=== PATIENT | male | born 1945 | race Caucasian/White ===

== ENCOUNTER 2019-02-22 10:17 | Day surgery (SDC) | payer MEDICARE, BC ==
[~2019-02-22 10:17] MED LIST: Lactated Ringers 1,000 ML IV SCH
--- NOTE | 2019-02-22 11:59 | PCM.PREANE ---
Preanesthetic Assessment - Anesthesia/Transfusion/Family Hx Anesthesia History: Prior Anesthesia Without Reaction Family History of Anesthesia Reaction: No Transfusion History: No Prior Transfusion(s) Type of Transfusion Reactions: Reports: Unknown - Review of Systems General: No Symptoms Pulmonary: No Symptoms Cardiovascular: No Symptoms Gastrointestinal: No Symptoms Neurological: No Symptoms Other: Reports: None - Physical Assessment NPO Status Date: 02/21/19 O2 Sat by Pulse Oximetry: 94 Respiratory Rate: 16 Vital Signs: Last Vital Signs Temp 98.1 F 02/22/19 11:00 Pulse 61 02/22/19 11:00 Resp 16 02/22/19 11:00 BP 127/78 02/22/19 11:00 Pulse Ox 94 L 02/22/19 11:00 Height: 5 ft 10 in Weight: 89.811 kg ASA Class: 3 Mental Status: Alert & Oriented x3 Airway Class: Mallampati = 2 Dentition: Reports: Normal Dentition ROM/Head Extension: Full Lungs: Clear to Auscultation, Normal Respiratory Effort Cardiovascular: Regular Rate, Regular Rhythm - Allergies Allergies/Adverse Reactions: Allergies Allergy/AdvReac Type Severity Reaction Status Date / Time No Known Allergies Allergy Verified 02/18/19 07:37 - Blood Blood Available: No - Anesthesia Plan Pre-Op Medication Ordered: None - Acknowledgements Anesthesia Type Planned: General Anesthesia, MAC Pt an Appropriate Candidate for the Planned Anesthesia: Yes Alternatives and Risks of Anesthesia Discussed w Pt/Guardian: Yes Pt/Guardian Understands and Agrees with Anesthesia Plan: Yes Additional Comments: PMH: cad with stent, 2009, htn, hld, gerd/esphagitis, melanie- on cpap, on tapazole for hyperthyroidism, PLN mac/tiva PreAnesthesia Questionnaire HEENT History: Reports: Other (See Below) Other HEENT History: wears glasses Cardiovascular History: Reports: CAD, High Cholesterol, Hypertension, CA, Other (See Below) Other Cardiovascular History: THORACIC AORTIC ANEURYSM ,states "they are just watching it" Respiratory History: Reports: Sleep Apnea Other Respiratory History: states he uses his CPAP occasionally Gastrointestinal History: Reports: Colon Polyp, GERD Other Gastrointestinal History: DYSPHAGIA Genitourinary History: Reports: Other (See Below) Other Genitourinary History: hx prostate cancer Musculoskeletal History: Reports: Arthritis, Fracture Other Musculoskeletal History: rt hip pain Neurological History: Reports: Concussion Psychiatric History: Reports: None Endocrine/Metabolic History: Reports: Hyperthyroidism Hematologic History: Reports: None Immunologic History: Reports: None Oncologic (Cancer) History: Reports: Prostate Dermatologic History: Reports: None - Past Surgical History Head Surgeries/Procedures: Reports: None HEENT Surgical History: Reports: None Cardiovascular Surgical History: Reports: Coronary Artery Stent Respiratory Surgical History: Reports: None GI Surgical History: Reports: Colonoscopy, EGD, Esophageal Dilatation, Hernia, Inguinal, Other (See Below) Other GI Surgeries/Procedures: hx esophogeal dilation, hx inguinal hernia repair , hx paraesophageal hiatal hernia repair Male Surgical History: Reports: Prostatectomy Endocrine Surgical History: Reports: None Neurological Surgical History: Reports: None Musculoskeletal Surgical History: Reports: Amputation, Other (See Below) Other Musculoskeletal Surgeries/Procedures:: 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 Oncologic Surgical History: Reports: None Dermatological Surgical History: Reports: None - SUBSTANCE USE Smoking Status *Q: Never Smoker Recreational Drug Use History: No - HOME MEDS Home Medications: Home Meds Simvastatin 40 mg PO BEDTIME 05/30/15 [History] Valsartan/Hydrochlorothiazide [Valsartan-Hctz 320-25 mg Tab] 1 tab PO DAILY [History] amLODIPine Besylate [Amlodipine Besylate] 5 mg PO DAILY 05/30/15 [History] methIMAzole [Methimazole] 5 mg PO DAILY 05/30/15 [History] Acetaminophen [Tylenol Arthritis] 2 tab PO ASDIRECTED PRN 02/18/19 [History] Aspirin [Adult Low Dose Aspirin EC] 81 mg PO DAILY 02/18/19 [History] Ferrous Sulfate [Slow Fe] 65 mg PO DAILY 02/18/19 [History] Ibuprofen 800 mg PO TID PRN 02/18/19 [History] Omeprazole 40 mg PO DAILY 02/18/19 [History] Viagra 50 mg PO ASDIRECTED PRN 02/18/19 [History] - CURRENT (IN HOUSE) MEDS Current Meds: Current Medications Lactated Ringer's (Ringers, Lactated) 1,000 mls @ 125 mls/hr IV ASDIRECTED HAKAN Last Admin: 02/22/19 11:30 Dose: 125 mls/hr
[2019-02-22] MEDS ORDERED: Midazolam 1 MG/ML 2 ML SDV ONE (13:25)
[2019-02-22] MEDS ORDERED: Ondansetron 4 MG/2 ML SDV ONE (13:25)
[2019-02-22] MEDS ORDERED: fentaNYL 100 MCG/2 ML SDV ONE (13:28)
[2019-02-22] MEDS ORDERED: Propofol 200 MG/20 ML SDV ONE ×2 (13:28→14:50)
--- NOTE | 2019-02-22 14:11 | PCM.OPNOTE ---
- General Post-Op/Procedure Note Date of Surgery/Procedure: 02/22/19 Operative Procedure(s): Colonoscopy with cold cecal and sigmoid colon, polypectomies Pre Op Diagnosis: Personal history of colon polyps Post-Op Diagnosis: Cecal and sigmoid colon polyps Anesthesia Technique: MAC (ASA III) Primary Surgeon: Marlon Peoples Condition: Good Free Text/Narrative:: DICTATION [id number] CPT CODE [id number]
[2019-02-22] MEDS ORDERED: Lactated Ringers 1,000 ML IV SCH (14:15)
--- NOTE | 2019-02-22 14:20 | PCM.POSTAN ---
POST ANESTHESIA ASSESSMENT - MENTAL STATUS Mental Status: Alert, Oriented - RESPIRATORY Respiratory Status: Respiratory Rate WNL, Airway Patent, O2 Saturation Stable - CARDIOVASCULAR CV Status: Pulse Rate WNL, Blood Pressure Stable - GASTROINTESTINAL GI Status: No Symptoms - POST OP HYDRATION Hydration Status: Adequate & Stable
[2019-02-22 14:35] VITALS: BP 135/68
--- NOTE | 2019-02-22 15:31 | PCM48HPAN ---
Post Anesthesia Note - EVALUATION WITHIN 48HRS OF ANESTHETIC Vital Signs in Normal Range: Yes Patient Participated in Evaluation: Yes Respiratory Function Stable: Yes Airway Patent: Yes Cardiovascular Function Stable: Yes Hydration Status Stable: Yes Pain Control Satisfactory: Yes Nausea and Vomiting Control Satisfactory: Yes Mental Status Recovered: Yes Resp Rate: 16
--- NOTE | 2019-02-22 21:21 | OR ---
SURGEON: Marlon Peoples M.D. DATE OF PROCEDURE: 02/22/2019 PROCEDURE PERFORMED: Colonoscopy with cold cecal and sigmoid colon polypectomy. ANESTHESIA: MAC. ASA CLASSIFICATION: 3. PREOPERATIVE DIAGNOSES: 1. Personal history of colon polyps. 2. Fecal incontinence. POSTOPERATIVE DIAGNOSES: 1. Cecal polyp. 2. Sigmoid colon polyp. DESCRIPTION OF PROCEDURE: The patient was taken to the endoscopy room and positioned on the endoscopy table in the left lateral decubitus position. A time-out was called for appropriate identification of patient and procedure. Monitored anesthesia care was provided. The colonoscope was inserted into the rectum and advanced with minimal difficulty to the cecum, where the colonoscope was retroflexed to visualize the ascending colon from below. The colonoscope was then straightened. One polyp was encountered in the cecum, and this was removed with the cold biopsy forceps. The remainder of the ascending colon, hepatic flexure, transverse colon, splenic flexure, and descending colon showed no tumors, polyps, diverticula, or angiodysplastic changes. A second polyp was encountered in the sigmoid colon and removed with cold biopsy forceps and sent for separate histologic analysis. The colonoscope was withdrawn to the rectum and retroflexed to visualize the anal orifice from above. Again, no tumors or polyps were seen, and there were no acute hemorrhoidal changes. The colonoscope was then straightened, the rectum aspirated, and the colonoscope removed. The patient tolerated the procedure well and was taken to recovery room in stable condition. BENJI LUX /[id number]
== END 2019-02-22 15:48 | disposition home or self-care (01) ==
LOC: MW.SDS 10:17
PROVIDERS: ATTEND Surgery
DX: D12.0 Benign neoplasm of cecum (principal); D12.5 Benign neoplasm of sigmoid colon; I25.10 Atherosclerotic heart disease of native coronary artery without angina pectoris; I10 Essential (primary) hypertension; I25.2 Old myocardial infarction; E05.90 Thyrotoxicosis, unspecified without thyrotoxic crisis or storm; E78.00 Pure hypercholesterolemia, unspecified; G47.33 Obstructive sleep apnea (adult) (pediatric); M19.90 Unspecified osteoarthritis, unspecified site; Z95.5 Presence of coronary angioplasty implant and graft; Z86.010 Personal history of colon polyps; Z79.82 Long term (current) use of aspirin; Z79.899 Other long term (current) drug therapy
CPT/HCPCS: 45380; J2250; J2405; J2704; J3010; J7120

== ENCOUNTER 2021-03-23 09:23 | Day surgery (SDC) | payer MEDICARE, OTHER ==
[~2021-03-23 09:23] MED LIST changes: +Lidocaine 2% 5 ML SDV ONE; +Propofol 200 MG/20 ML SDV ONE; +fentaNYL 100 MCG/2 ML SDV ONE
--- NOTE | 2021-03-23 10:58 | PCM.PREANE ---
Preanesthetic Assessment - Anesthesia/Transfusion/Family Hx Anesthesia History: Prior Anesthesia Without Reaction Family History of Anesthesia Reaction: No Transfusion History: Prior Transfusion Without Reaction Type of Transfusion Reactions: Reports: Unknown - Review of Systems General: No Symptoms Pulmonary: No Symptoms Cardiovascular: No Symptoms Gastrointestinal: No Symptoms Neurological: No Symptoms Other: Reports: None - Physical Assessment NPO Status Date: 03/23/21 NPO Status Time: 00:01 Vital Signs: Last Vital Signs Temp 97.5 F 03/23/21 10:18 Pulse 60 03/23/21 10:18 Resp 16 03/23/21 10:18 BP 140/79 03/23/21 10:18 Pulse Ox 96 03/23/21 10:18 Height: 5 ft 10 in Weight: 196 lb ASA Class: 2 Mental Status: Alert & Oriented x3 Airway Class: Mallampati = 2 Dentition: Reports: Normal Dentition ROM/Head Extension: Limited/Partial Lungs: Clear to Auscultation, Normal Respiratory Effort Cardiovascular: Regular Rate, Regular Rhythm - Lab Values: Laboratory Last Values SARS-CoV-2 RNA (NIRAV) NEGATIVE (NEGATIVE) 03/23/21 09:15 - Allergies Allergies/Adverse Reactions: Allergies Allergy/AdvReac Type Severity Reaction Status Date / Time No Known Allergies Allergy Verified 03/19/21 12:18 - Anesthesia Plan Pre-Op Medication Ordered: None - Acknowledgements Anesthesia Type Planned: General Anesthesia Pt an Appropriate Candidate for the Planned Anesthesia: Yes Alternatives and Risks of Anesthesia Discussed w Pt/Guardian: Yes Pt/Guardian Understands and Agrees with Anesthesia Plan: Yes Additional Comments: npo rebecca melanie w cpap prostate Ca 2009 XRT tob none etoh occ thoracic AA yearly followups last done Nov 2020` no OK 2014 angioplasty with 1 stent ASA daily now no cp, sob moore now par no questions PreAnesthesia Questionnaire HEENT History: Reports: Cataract Other HEENT History: wears glasses Cardiovascular History: Reports: High Cholesterol, Hypertension Other Cardiovascular History: THORACIC AORTIC ANEURYSM ,states "they are just watching it" Respiratory History: Reports: Sleep Apnea Other Respiratory History: uses CPAP Gastrointestinal History: Reports: Colon Polyp, Diverticulosis, GERD, Hiatal Hernia Other Gastrointestinal History: DYSPHAGIA Genitourinary History: Reports: Prostate Disorder Other Genitourinary History: hx of prostate cancer Musculoskeletal History: Reports: Arthritis, Fracture Other Musculoskeletal History: hx of fx/amputated right arm Neurological History: Reports: Concussion Psychiatric History: Reports: None Endocrine/Metabolic History: Reports: Hyperthyroidism Hematologic History: Reports: Blood Transfusion(s) Immunologic History: Reports: None Oncologic (Cancer) History: Reports: Prostate Dermatologic History: Reports: None - Past Surgical History Head Surgeries/Procedures: Reports: None HEENT Surgical History: Reports: Cataract Surgery Cardiovascular Surgical History: Reports: Coronary Artery Stent Other Cardiovascular Surgeries/Procedures: Angioplasty with 1 stent placed Respiratory Surgical History: Reports: None GI Surgical History: Reports: Colonoscopy, EGD, Hernia, Inguinal Male Surgical History: Reports: Prostatectomy Other Male Surgeries/Procedures: Radical Retropubic Prostatectomy Endocrine Surgical History: Reports: None Neurological Surgical History: Reports: None Musculoskeletal Surgical History: Reports: Amputation Other Musculoskeletal Surgeries/Procedures:: right arm Other Oncologic Surgeries/Procedures: Prostatectomy - SUBSTANCE USE Tobacco Use Status *Q: Never Tobacco User Recreational Drug Use History: No - HOME MEDS Home Medications: Home Meds Valsartan/Hydrochlorothiazide [Valsartan-Hctz 320-25 mg Tab] 1 tab PO DAILY 05/30/15 [History] amLODIPine Besylate [Amlodipine Besylate] 5 mg PO QAM 05/30/15 [History] methIMAzole [Methimazole] 5 mg PO QAM 05/30/15 [History] Aspirin [Adult Low Dose Aspirin EC] 81 mg PO DAILY 02/18/19 [History] Ferrous Sulfate [Slow Fe] 65 mg PO DAILY 02/18/19 [History] Omeprazole 40 mg PO DAILY 02/18/19 [History] Potassium Chloride 20 meq PO DAILY 03/19/21 [History] atorvaSTATin Calcium [Atorvastatin Calcium] 40 mg PO DAILY 03/19/21 [History] - CURRENT (IN HOUSE) MEDS Current Meds: Current Medications Lactated Ringer's (Ringers, Lactated) 1,000 mls @ 125 mls/hr IV ASDIRECTED HAKAN Last Admin: 03/23/21 10:35 Dose: 125 mls/hr Documented by: Discontinued Medications Fentanyl (Fentanyl 100 Mcg/2 Ml Sdv) Confirm Administered Dose 100 mcg .ROUTE .STK-MED ONE Stop: 03/23/21 08:05 Lidocaine (Lidocaine 2% 5 Ml Sdv) Confirm Administered Dose 5 ml .ROUTE .STK-MED ONE Stop: 03/23/21 08:05 Propofol (Propofol 200 Mg/20 Ml Sdv) Confirm Administered Dose 200 mg .ROUTE .[facility] ONE Stop: 03/23/21 08:05
[2021-03-23] MEDS ORDERED: Glycopyrrolate 0.2 MG/ML SDV ONE ×2 (11:27→11:32)
[2021-03-23] MEDS ORDERED: Propofol 200 MG/20 ML SDV ONE (11:41)
[2021-03-23] MEDS ORDERED: Lactated Ringers 1,000 ML IV SCH (12:00)
--- NOTE | 2021-03-23 12:03 | PCM.OPNOTE ---
- General Post-Op/Procedure Note Date of Surgery/Procedure: 03/23/21 Operative Procedure(s): Colonoscopy with cold cecal polypectomy and biopsy sigmoid lesion. Tattooing of sigmoid lesion. Pre Op Diagnosis: Personal history of dysplastic polyps. Sigmoid diverticulosis. Post-Op Diagnosis: Cecal polyp. Sigmoid lesion. Sigmoid diverticulosis. Anesthesia Technique: MAC (ASA II) Primary Surgeon: Marlon Peoples Condition: Good Free Text/Narrative:: DICTATION [id number] CPT CODE [id number], [id number]
--- NOTE | 2021-03-23 12:05 | PCM.POSTAN ---
POST ANESTHESIA ASSESSMENT - MENTAL STATUS Mental Status: Alert, Oriented - VITAL SIGNS Vital Signs: Last Vital Signs Temp 36.4 C 03/23/21 10:18 Pulse 71 03/23/21 12:00 Resp 11 L 03/23/21 12:00 BP 109/64 03/23/21 12:00 Pulse Ox 92 L 03/23/21 12:00 - RESPIRATORY Respiratory Status: Respiratory Rate WNL, Airway Patent, O2 Saturation Stable - CARDIOVASCULAR CV Status: Pulse Rate WNL, Blood Pressure Stable - GASTROINTESTINAL GI Status: No Symptoms - POST OP HYDRATION Hydration Status: Adequate & Stable
[2021-03-23 12:13] VITALS: BP 115/70; PULSE 69
--- NOTE | 2021-03-23 12:16 | PCM48HPAN ---
Post Anesthesia Note - EVALUATION WITHIN 48HRS OF ANESTHETIC Vital Signs in Normal Range: Yes Patient Participated in Evaluation: Yes Respiratory Function Stable: Yes Airway Patent: Yes Cardiovascular Function Stable: Yes Hydration Status Stable: Yes Pain Control Satisfactory: Yes Nausea and Vomiting Control Satisfactory: Yes Mental Status Recovered: Yes Vital Signs: Last Vital Signs Temp 36.1 C 03/23/21 12:05 Pulse 69 03/23/21 12:05 Resp 14 03/23/21 12:05 BP 115/70 03/23/21 12:05 Pulse Ox 93 L 03/23/21 12:05
--- NOTE | 2021-03-23 15:00 | OR ---
SURGEON: Marlon Peoples M.D. DATE OF PROCEDURE: 03/23/2021 OPERATION PERFORMED: Colonoscopy with cold cecal polypectomy and biopsy of sigmoid lesion with tattooing. PRIMARY SURGEON: Marlon Peoples MD ANESTHESIA: MAC. ASA CLASSIFICATION: II. PREOPERATIVE DIAGNOSIS: Personal history of dysplastic polyps. POSTOPERATIVE DIAGNOSES: 1. Cecal polyp. 2. Sigmoid thickening, rule out neoplasm. DESCRIPTION OF PROCEDURE: The patient was taken to the endoscopy room and positioned on the endoscopy table in the left lateral decubitus position. Time-out was called for appropriate identification of patient and procedure. Monitored anesthesia care was provided. The colonoscope was inserted into the rectum and advanced with minimal difficulty to the cecum. The cecum was identified by internal landmarks and external pressure. The colonoscope was retroflexed to visualize the ascending colon from below and then straightened. One polyp was encountered in the cecum, and this was removed with cold biopsy forceps. The remainder of the ascending colon, hepatic flexure, transverse colon, splenic flexure, and descending colon showed no tumors, polyps, diverticula, or angiodysplastic changes. At 50 cm from the anal verge, another polyp was encountered, and this was involving perhaps 40% of the circumference. Multiple biopsies of this area were obtained, and the area subsequently tattooed with the endoscopic tattooing agent. Few scattered diverticula were seen in the sigmoid colon. No stricture, spasm, or bleeding was noted. The colonoscope was then withdrawn to the rectum and retroflexed to visualize the anal orifice from above. No tumors, polyps, or acute hemorrhoidal changes were noted. The colonoscope was then straightened, the rectum aspirated, and the colonoscope removed. The patient tolerated the procedure well and was taken to recovery room in stable condition. BENJI / MACI /[id number]
== END 2021-03-23 12:50 | disposition home or self-care (01) ==
LOC: MW.SDS 09:23
PROVIDERS: ATTEND Surgery
DX: Z12.11 Encounter for screening for malignant neoplasm of colon (principal); D12.0 Benign neoplasm of cecum; D12.5 Benign neoplasm of sigmoid colon; I10 Essential (primary) hypertension; E78.00 Pure hypercholesterolemia, unspecified; E05.90 Thyrotoxicosis, unspecified without thyrotoxic crisis or storm; I25.10 Atherosclerotic heart disease of native coronary artery without angina pectoris; Z95.1 Presence of aortocoronary bypass graft; Z01.812 Encounter for preprocedural laboratory examination; Z20.822 Contact with and (suspected) exposure to COVID-19; Z79.82 Long term (current) use of aspirin; Z79.899 Other long term (current) drug therapy; Z98.890 Other specified postprocedural states
CPT/HCPCS: 45380; 45381; J2704; J3010; J3490; J7120; U0002; 00812